=== PATIENT | male | born 2000 | race Hispanic/Latino ===

== ENCOUNTER 2024-07-10 11:32 | Inpatient (IN) | payer SELFPAY ==
[~2024-07-10] VITALS: Ht 180.3 cm; Wt 143.8 kg
[2024-07-10] VITALS (7 sets, daily range): BP systolic 181–192; BP diastolic 112–132; PULSE 98–107; RESP 20–24; TEMP 98.6–99.1; O2SAT 95–100
[2024-07-10 12:16] LABS: BASOPHILS # (AUTO) 0.1 (0.0-0.1); BASOPHILS % 0.6 % (0.0-1.0); EOSINOPHILS # (AUTO) 0.1 (0.0-0.4); EOSINOPHILS % 0.7 % (0.0-6.0); HEMATOCRIT 39.4 % (38.2-49.6); HEMOGLOBIN 12.9 g/dL (14.0-18.0); LYMPHOCYTES # (AUTO) 1.8 (1.0-3.2); MEAN CORPUSCULAR HEMOGLOBIN 28.9 pg (28-32); MEAN CORPUSCULAR HGB CONC 32.7 g/dL (31-35); MEAN CORPUSCULAR VOLUME 88.1 fL (81-99); MONOCYTES # (AUTO) 1.1 (0.2-0.8); MONOCYTES % 7.8 % (4.4-11.3); NEUTROPHILS # (AUTO) 10.6 (2.1-6.9); NEUTROPHILS % 77.5 % (38.7-80.0); PLATELET COUNT 269 x10e3/uL (140-360); RED BLOOD COUNT 4.47 x10e6/uL (4.3-5.7); RED CELL DISTRIBUTION WIDTH 13.9 % (11.7-14.4); WHITE BLOOD COUNT 13.65 x10e3/uL (4.8-10.8)
[2024-07-10 12:28] LABS: INR 1.02
[2024-07-10 12:31] LABS: INFLUENZAE A&B ANTIGEN (RAPID) NEGATIVE (NEGATIVE)
[2024-07-10 12:32] LABS: RESPIRATORY SYNC. VIRUS NEGATIVE (NEGATIVE)
[2024-07-10] MEDS: NITROGLYCERIN/D5W 200 MCG/ML 250 ML IV SCH (12:34)
[2024-07-10] MEDS: FUROSEMIDE INJ 10 MG/ML 4 ML VIAL IV ONE (12:34)
[2024-07-10 12:36] LABS: ALBUMIN 3.4 g/dL (3.5-5.0); ALBUMIN/GLOBULIN RATIO 0.9 (0.8-2.0); BILIRUBIN,TOTAL 0.7 mg/dL (0.2-1.2); CALCIUM 9.6 mg/dL (8.4-10.2); CREATININE, SERUM 2.06 mg/dL (0.72-1.25); MAGNESIUM 2.3 MG/DL (1.3-2.1); TOTAL PROTEIN 7.2 g/dL (6.5-8.1)
[2024-07-10] MEDS ORDERED: FUROSEMIDE INJ 10 MG/ML 4 ML VIAL ONE (12:36)
[2024-07-10] MEDS ORDERED: NITROGLYCERIN/D5W 200 MCG/ML 250 ML ONE (12:36)
[2024-07-10 12:43] LABS: TROPONIN I 0.219 ng/mL (0-0.300)
[2024-07-10] MEDS: LABETALOL HCL 5 MG/ML 20ML VIAL IV STA ×3 (13:03→19:26)
[2024-07-10] MEDS: LORAZEPAM INJ 2 MG/ML VIAL IV ONE (13:15)
[2024-07-10] MEDS ORDERED: ONDANSETRON HCL INJ 2MG/ML 2ML 2 MG/ML VIAL IV PRN (13:30)
[2024-07-10 14:40] LABS: CLARITY,URINE CLEAR (CLEAR); COLOR,URINE YELLOW (YELLOW); LEUKOCYTE ESTERASE ,URINE NEGATIVE (NEGATIVE); NITRITE,URINE NEGATIVE (NEGATIVE); PH,URINE 6.5 (5 - 7)
[2024-07-10 14:41] LABS: BILIRUBIN,URINE NEGATIVE (NEGATIVE); GLUCOSE, URINE NEGATIVE (NEGATIVE); KETONES,URINE NEGATIVE (NEGATIVE); PROTEIN,URINE DIPSTICK >=300 (NEGATIVE); URINE UROBILINOGEN 0.2 mg/dL (0.2 - 1)
[2024-07-10 14:44] LABS: AMPHETAMINES SCREEN,URINE NEGATIVE (NEGATIVE); BENZODIAZEPINES SCREEN,URINE NEGATIVE (NEGATIVE); CANNABINOIDS SCREEN,URINE NEGATIVE (NEGATIVE); COCAINE SCREEN,URINE NEGATIVE (NEGATIVE); METHADONE SCREEN, URINE NEGATIVE (NEGATIVE); OPIATES SCREEN,URINE NEGATIVE (NEGATIVE); PHENCYCLIDINE SCREEN,URINE NEGATIVE (NEGATIVE)
[2024-07-10 14:51] LABS: BACTERIA,URINE FEW /HPF; EPITHELIAL CELLS,URINE RARE /LPF; RBC,URINE 0-5 /HPF (0-5); WBC,URINE (MAN) 0-5 /HPF (0-5)
[2024-07-10] MEDS ORDERED: VASOTEC10 M1 PO (15:55)
[2024-07-10] MEDS: NIFEDIPINE CR 30 MG TAB PO ONE (16:18)
[2024-07-10] MEDS: CARVEDILOL 12.5 MG TAB PO SCH (16:18)
[2024-07-10] MEDS: ACETAMINOPHEN 325 MG TAB PO ONE (17:09)
[2024-07-10] MEDS: FUROSEMIDE INJ 10 MG/ML 2 ML VIAL IV ONE (17:11)
[2024-07-10] MEDS: POTASSIUM CHLORIDE 20MEQ/100ML 200 ML IV ONE (17:11)
[2024-07-10] MEDS ORDERED: SODIUM CHLORIDE 0.9% 250ML 250 ML ONE (18:36)
[2024-07-10 19:29] LABS: TROPONIN I 0.238 ng/mL (0-0.300)
[2024-07-10] MEDS: ZOLPIDEM TARTRATE 5 MG TAB PO PRN (22:49)
[2024-07-10] MEDS: LABETALOL HCL 5 MG/ML 20ML VIAL IV PRN (23:12)
[2024-07-11] VITALS (79 sets, daily range): BP systolic 109–186; BP diastolic 53–116; PULSE 84–123; RESP 14–39; TEMP 97.4–98.4; O2SAT 89–99
[2024-07-11] MEDS: ACETAMINOPHEN 325 MG TAB PO PRN (00:40)
[2024-07-11 01:25] LABS: TROPONIN I 0.187 ng/mL (0-0.300)
[2024-07-11 07:09] LABS: BASOPHILS # (AUTO) 0.1 (0.0-0.1); BASOPHILS % 0.5 % (0.0-1.0); EOSINOPHILS # (AUTO) 0.3 (0.0-0.4); EOSINOPHILS % 2.2 % (0.0-6.0); HEMATOCRIT 32.8 % (38.2-49.6); HEMOGLOBIN 10.7 g/dL (14.0-18.0); LYMPHOCYTES % 16.9 % (18.0-39.1); MEAN CORPUSCULAR HEMOGLOBIN 29.3 pg (28-32); MEAN CORPUSCULAR HGB CONC 32.6 g/dL (31-35); MEAN CORPUSCULAR VOLUME 89.9 fL (81-99); MONOCYTES # (AUTO) 1.2 (0.2-0.8); MONOCYTES % 10.2 % (4.4-11.3); NEUTROPHILS % 69.7 % (38.7-80.0); PLATELET COUNT 238 x10e3/uL (140-360); RED BLOOD COUNT 3.65 x10e6/uL (4.3-5.7); RED CELL DISTRIBUTION WIDTH 13.9 % (11.7-14.4); WHITE BLOOD COUNT 11.53 x10e3/uL (4.8-10.8)
[2024-07-11 07:42] LABS: ALBUMIN 2.9 g/dL (3.5-5.0); ALBUMIN/GLOBULIN RATIO 0.9 (0.8-2.0); ANION GAP 12.9 mmol/L (8-16); BILIRUBIN,TOTAL 0.6 mg/dL (0.2-1.2); CALCIUM 9.2 mg/dL (8.4-10.2); CHOL/HDL RATIO 4.8 (3.9-4.7); CREATININE, SERUM 2.42 mg/dL (0.72-1.25); TOTAL PROTEIN 6.2 g/dL (6.5-8.1)
[2024-07-11] MEDS: FUROSEMIDE INJ 10 MG/ML 2 ML VIAL IV SCH ×2 (07:43→18:18)
[2024-07-11] MEDS: CARVEDILOL 12.5 MG TAB PO SCH (07:44)
[2024-07-11] MEDS: NIFEDIPINE CR 30 MG TAB PO SCH ×2 (07:46→17:04)
[2024-07-11] MEDS: POTASSIUM CHLORIDE 20 MEQ TAB CR PO SCH (07:46)
[2024-07-11 07:54] LABS: POTASSIUM 2.9 mmol/L (3.5-5.1)
[2024-07-11 08:02] LABS: TROPONIN I 0.14 ng/mL (0-0.300)
[2024-07-11] MEDS: POTASSIUM CHLORIDE 20 MEQ TAB CR PO ONE ×2 (09:07→18:18)
[2024-07-11] MEDS: HYDRALAZINE HCL 100 MG TABLET PO SCH (12:12)
[2024-07-11] MEDS: NIFEDIPINE CR 30 MG TAB PO ONE (12:13)
[2024-07-11] MEDS: ONDANSETRON HCL INJ 2MG/ML 2ML 2 MG/ML VIAL IV PRN (13:50)
[2024-07-11] MEDS: ENOXAPARIN SOD INJ 40 MG/0.4 ML SYR SC SCH (17:03)
[2024-07-12] VITALS (30 sets, daily range): BP systolic 98–180; BP diastolic 54–106; PULSE 87–118; RESP 19–40; TEMP 97.7–98.7; O2SAT 88–100
[2024-07-12] MEDS: LABETALOL HCL 5 MG/ML 20ML VIAL IV ONE (06:55)
[2024-07-12 07:11] LABS: BASOPHILS # (AUTO) 0.1 (0.0-0.1); BASOPHILS % 0.7 % (0.0-1.0); EOSINOPHILS # (AUTO) 0.1 (0.0-0.4); EOSINOPHILS % 0.7 % (0.0-6.0); HEMATOCRIT 32.6 % (38.2-49.6); HEMOGLOBIN 10.9 g/dL (14.0-18.0); LYMPHOCYTES # (AUTO) 1.9 (1.0-3.2); LYMPHOCYTES % 16.9 % (18.0-39.1); MEAN CORPUSCULAR HEMOGLOBIN 29.5 pg (28-32); MEAN CORPUSCULAR HGB CONC 33.4 g/dL (31-35); MEAN CORPUSCULAR VOLUME 88.1 fL (81-99); MONOCYTES # (AUTO) 1.1 (0.2-0.8); MONOCYTES % 10.3 % (4.4-11.3); NEUTROPHILS # (AUTO) 7.8 (2.1-6.9); NEUTROPHILS % 70.8 % (38.7-80.0); PLATELET COUNT 319 x10e3/uL (140-360); RED CELL DISTRIBUTION WIDTH 14.6 % (11.7-14.4); WHITE BLOOD COUNT 11.05 x10e3/uL (4.8-10.8)
[2024-07-12 07:39] LABS: ALBUMIN 2.9 g/dL (3.5-5.0); ALBUMIN/GLOBULIN RATIO 0.9 (0.8-2.0); ANION GAP 15.4 mmol/L (8-16); BILIRUBIN,TOTAL 0.5 mg/dL (0.2-1.2); CALCIUM 9.2 mg/dL (8.4-10.2); CREATININE, SERUM 2.53 mg/dL (0.72-1.25); TOTAL PROTEIN 6.3 g/dL (6.5-8.1)
[2024-07-12 07:44] LABS: POTASSIUM 3.4 mmol/L (3.5-5.1)
[2024-07-12] MEDS: FUROSEMIDE INJ 10 MG/ML 4 ML VIAL IV SCH (09:03)
[2024-07-12] MEDS: POTASSIUM CHLORIDE 20 MEQ TAB CR PO ONE ×2 (09:04→16:05)
[2024-07-12] MEDS: HYDRALAZINE HCL 25 MG TAB PO SCH (15:42)
[2024-07-12] MEDS: FUROSEMIDE INJ 100 MG in SODIUM CHLORIDE 0.9% 90 ML IV SCH (17:44)
[2024-07-12] MEDS: SUCRALFATE 1 GM TAB PO ONE (23:55)
[2024-07-13] VITALS (27 sets, daily range): BP systolic 109–171; BP diastolic 61–99; PULSE 90–111; RESP 17–42; TEMP 97.8–99; O2SAT 89–99
[2024-07-13 05:45] LABS: ANION GAP 15.9 mmol/L (8-16); CALCIUM 9.1 mg/dL (8.4-10.2); CREATININE, SERUM 2.53 mg/dL (0.72-1.25)
[2024-07-13 05:54] LABS: POTASSIUM 2.9 mmol/L (3.5-5.1)
[2024-07-13 07:23] LABS: COMPLEMENT C3 184 mg/dL (82-167)
[2024-07-13 08:11] LABS: TOTAL PROTEIN, URINE 10.8 mg/dL (1-14)
[2024-07-13 08:16] LABS: TOTAL PROTEIN 24HR, URINE 529.2 mg/24hr (50-100)
[2024-07-13] MEDS: POTASSIUM CHLORIDE 20 MEQ TAB CR PO STA (08:49)
[2024-07-13] MEDS: NIFEDIPINE CR 30 MG TAB PO SCH (08:51)
[2024-07-13 09:46] LABS: COMPLEMENT C4 28 mg/dL (12-38)
[2024-07-13 15:08] LABS: ANTI DNA DS ANTIBODY <1 IU/mL (0-9)
[2024-07-13] MEDS: POTASSIUM CHLORIDE 20 MEQ TAB CR PO ONE (16:53)
[2024-07-14] VITALS (30 sets, daily range): BP systolic 120–165; BP diastolic 69–103; PULSE 85–112; RESP 16–37; TEMP 97.8–98.3; O2SAT 91–100
[2024-07-14 07:15] LABS: ANION GAP 15.8 mmol/L (8-16); CALCIUM 9.5 mg/dL (8.4-10.2); CREATININE, SERUM 2.46 mg/dL (0.72-1.25)
[2024-07-14] MEDS ORDERED: POLYETHYLENE GLYCOL 3350 17 GM PACK PO PRN (07:15)
[2024-07-14 07:53] LABS: POTASSIUM 2.8 mmol/L (3.5-5.1)
[2024-07-14] MEDS: NIFEDIPINE CR 30 MG TAB PO SCH (08:31)
[2024-07-14] MEDS: DOCUSATE SODIUM 100 MG CAP PO SCH (08:32)
[2024-07-14] MEDS: PANTOPRAZOLE SOD 40 MG TABEC PO SCH (08:32)
[2024-07-14] MEDS: POTASSIUM CHLORIDE 20 MEQ TAB CR PO SCH ×2 (08:32→14:00)
[2024-07-14] MEDS: POTASSIUM CHLORIDE 20 MEQ TAB CR PO STA (10:17)
[2024-07-14] MEDS ORDERED: POTASSIUM CHLORIDE 20 MEQ TAB CR PO ONE (18:00)
[2024-07-15] VITALS (28 sets, daily range): BP systolic 118–162; BP diastolic 73–117; PULSE 79–121; RESP 13–32; TEMP 97.7–98.3; O2SAT 84–100
[2024-07-15 06:04] LABS: CREATININE,URINE RANDOM 37.94 mg/dL (63-166); TOTAL PROTEIN, URINE 8.7 mg/dL (1-14)
[2024-07-15 07:15] LABS: ANION GAP 17.9 mmol/L (8-16); CALCIUM 9.2 mg/dL (8.4-10.2); CREATININE, SERUM 2.41 mg/dL (0.72-1.25)
[2024-07-15 07:29] LABS: POTASSIUM 2.9 mmol/L (3.5-5.1)
[2024-07-15] MEDS: POTASSIUM CHLORIDE 10MEQ EA PO ONE (08:41)
[2024-07-16] VITALS (24 sets, daily range): BP systolic 136–171; BP diastolic 83–124; PULSE 83–103; RESP 14–42; TEMP 98.1–98.4; O2SAT 91–100
[2024-07-16 06:55] LABS: BASOPHILS # (AUTO) 0.1 (0.0-0.1); BASOPHILS % 1.2 % (0.0-1.0); EOSINOPHILS # (AUTO) 0.2 (0.0-0.4); EOSINOPHILS % 2.5 % (0.0-6.0); HEMATOCRIT 35.4 % (38.2-49.6); HEMOGLOBIN 11.2 g/dL (14.0-18.0); LYMPHOCYTES # (AUTO) 1.4 (1.0-3.2); LYMPHOCYTES % 21.1 % (18.0-39.1); MEAN CORPUSCULAR HGB CONC 31.6 g/dL (31-35); MEAN CORPUSCULAR VOLUME 91.7 fL (81-99); MONOCYTES # (AUTO) 0.7 (0.2-0.8); MONOCYTES % 10.9 % (4.4-11.3); NEUTROPHILS # (AUTO) 4.3 (2.1-6.9); NEUTROPHILS % 63.9 % (38.7-80.0); PLATELET COUNT 402 x10e3/uL (140-360); RED BLOOD COUNT 3.86 x10e6/uL (4.3-5.7); RED CELL DISTRIBUTION WIDTH 13.6 % (11.7-14.4); WHITE BLOOD COUNT 6.79 x10e3/uL (4.8-10.8)
[2024-07-16 07:15] LABS: ALBUMIN 2.8 g/dL (3.5-5.0); ALBUMIN/GLOBULIN RATIO 0.8 (0.8-2.0); ANION GAP 14.1 mmol/L (8-16); BILIRUBIN,TOTAL 0.3 mg/dL (0.2-1.2); CALCIUM 9.2 mg/dL (8.4-10.2); CREATININE, SERUM 2.26 mg/dL (0.72-1.25); TOTAL PROTEIN 6.4 g/dL (6.5-8.1)
[2024-07-16 07:22] LABS: POTASSIUM 3.1 mmol/L (3.5-5.1)
[2024-07-16] MEDS: SODIUM CHLORIDE 0.9% 500ML 500 ML IV ONE (16:16)
[2024-07-16] MEDS ORDERED: IOPAMIDOL 370 MG/ML 100 ML INFUS..BTL INJ ONE (16:41)
[2024-07-16] MEDS ORDERED: SODIUM CHLORIDE 0.9% 100 ML ONE (16:42)
[2024-07-16] MEDS: SODIUM CHLORIDE 0.9% 1000ML 1,000 ML IV ONE (18:22)
[2024-07-16] MEDS: POTASSIUM CHLORIDE 20MEQ/100ML 100 ML IV SCH (18:22)
[2024-07-17] VITALS (23 sets, daily range): BP systolic 133–176; BP diastolic 82–129; PULSE 85–107; RESP 14–34; TEMP 97.9–98.6; O2SAT 88–100
[2024-07-17] MEDS: LABETALOL HCL 5 MG/ML 20ML VIAL IV PRN (06:33)
[2024-07-17 07:00] LABS: ANION GAP 12.6 mmol/L (8-16); CALCIUM 9.2 mg/dL (8.4-10.2); CREATININE, SERUM 2.19 mg/dL (0.72-1.25); POTASSIUM 3.6 mmol/L (3.5-5.1)
[2024-07-17 08:44] LABS: TOTAL PROTEIN, URINE 19.3 mg/dL (1-14)
[2024-07-17] MEDS ORDERED: FUROSEMIDE INJ 10 MG/ML 4 ML VIAL IV SCH (09:00)
[2024-07-17 09:13] LABS: TOTAL PROTEIN 24HR, URINE 540.4 mg/24hr (50-100)
[2024-07-17 09:22] LABS: CREATININE,URINE RANDOM 154.1 mg/dL (63-166); TOTAL PROTEIN, URINE 40.3 mg/dL (1-14)
[2024-07-17] MEDS: LISINOPRIL 10 MG TAB PO ONE (17:15)
[2024-07-18] VITALS (9 sets, daily range): BP systolic 118–133; BP diastolic 68–98; PULSE 79–108; RESP 18–20; TEMP 97–99; O2SAT 98–100
[2024-07-18 05:05] LABS: BASOPHILS # (AUTO) 0.1 (0.0-0.1); BASOPHILS % 1.1 % (0.0-1.0); EOSINOPHILS # (AUTO) 0.3 (0.0-0.4); EOSINOPHILS % 4.2 % (0.0-6.0); HEMATOCRIT 35.6 % (38.2-49.6); HEMOGLOBIN 10.9 g/dL (14.0-18.0); LYMPHOCYTES # (AUTO) 1.4 (1.0-3.2); MEAN CORPUSCULAR HEMOGLOBIN 28.8 pg (28-32); MEAN CORPUSCULAR HGB CONC 30.6 g/dL (31-35); MEAN CORPUSCULAR VOLUME 93.9 fL (81-99); MONOCYTES # (AUTO) 0.7 (0.2-0.8); MONOCYTES % 11.2 % (4.4-11.3); NEUTROPHILS # (AUTO) 3.8 (2.1-6.9); NEUTROPHILS % 61.2 % (38.7-80.0); PLATELET COUNT 392 x10e3/uL (140-360); RED BLOOD COUNT 3.79 x10e6/uL (4.3-5.7); RED CELL DISTRIBUTION WIDTH 13.7 % (11.7-14.4); WHITE BLOOD COUNT 6.14 x10e3/uL (4.8-10.8)
[2024-07-18 05:25] LABS: ANION GAP 12.5 mmol/L (8-16); CREATININE, SERUM 1.92 mg/dL (0.72-1.25); POTASSIUM 3.5 mmol/L (3.5-5.1)
[2024-07-18 09:12] LABS: PROTHROMBIN TIME 13.8 seconds (11.9-14.5)
[2024-07-18] MEDS: NIFEDIPINE CR 30 MG TAB PO SCH (09:58)
[2024-07-18] MEDS: LISINOPRIL 10 MG TAB PO SCH (09:58)
[2024-07-18] MEDS: SODIUM CHLORIDE 0.9% 250ML 250 ML ONE (11:02)
[2024-07-18 15:15] LABS: cANCA TITER <1:20 titer (Neg:<1:20)
[2024-07-18 15:57] LABS: ATYPICAL pANCA TITER <1:20 titer (Neg:<1:20); pANCA TITER <1:20 titer (Neg:<1:20)
[2024-07-19] VITALS (8 sets, daily range): BP systolic 97–146; BP diastolic 56–88; PULSE 88–113; RESP 16–22; TEMP 97.5–98.9; O2SAT 96–98
[2024-07-19 04:59] LABS: BASOPHILS # (AUTO) 0.1 (0.0-0.1); EOSINOPHILS # (AUTO) 0.3 (0.0-0.4); EOSINOPHILS % 5.1 % (0.0-6.0); HEMATOCRIT 36.3 % (38.2-49.6); HEMOGLOBIN 11.1 g/dL (14.0-18.0); LYMPHOCYTES # (AUTO) 1.4 (1.0-3.2); LYMPHOCYTES % 23.2 % (18.0-39.1); MEAN CORPUSCULAR HEMOGLOBIN 28.8 pg (28-32); MEAN CORPUSCULAR HGB CONC 30.6 g/dL (31-35); MONOCYTES # (AUTO) 0.7 (0.2-0.8); MONOCYTES % 12.1 % (4.4-11.3); NEUTROPHILS # (AUTO) 3.5 (2.1-6.9); NEUTROPHILS % 58.1 % (38.7-80.0); PLATELET COUNT 424 x10e3/uL (140-360); RED BLOOD COUNT 3.86 x10e6/uL (4.3-5.7); RED CELL DISTRIBUTION WIDTH 13.8 % (11.7-14.4); WHITE BLOOD COUNT 5.94 x10e3/uL (4.8-10.8)
[2024-07-19 05:34] LABS: ANION GAP 10.6 mmol/L (8-16); CALCIUM 8.8 mg/dL (8.4-10.2); CREATININE, SERUM 2.06 mg/dL (0.72-1.25); POTASSIUM 4.6 mmol/L (3.5-5.1)
[2024-07-19] MEDS ORDERED: LIDOCAINE HCL 1% LOCAL INJ 20 ML VIAL ONE (08:10)
[2024-07-19] MEDS ORDERED: SODIUM CHLORIDE 0.9% 500ML 500 ML ONE (08:10)
[2024-07-19] MEDS ORDERED: SODIUM CHLORIDE 0.9% 250ML 250 ML ONE (08:29)
[2024-07-19] MEDS ORDERED: MIDAZOLAM HCL 2 MG/2 ML VIAL ONE (08:29)
[2024-07-19] MEDS ORDERED: FENTANYL CITRATE/PF 100MCG/2 ML INJ ONE (08:29)
[2024-07-19 16:07] LABS: ALDOSTERONE 37.9; RENIN, ACTIVITY PLASMA 36.102
[2024-07-20 00:05] VITALS: BP 97/57; PULSE 93; RESP 18; TEMP 97.5; O2SAT 98
[2024-07-20 00:49] VITALS: BP 126/82; PULSE 99; RESP 17; TEMP 98; O2SAT 97
[2024-07-20 04:00] VITALS: BP 134/80; PULSE 89; RESP 18; TEMP 97.7; O2SAT 94
[2024-07-20 05:30] LABS: BASOPHILS # (AUTO) 0.1 (0.0-0.1); BASOPHILS % 1.1 % (0.0-1.0); EOSINOPHILS # (AUTO) 0.3 (0.0-0.4); EOSINOPHILS % 4.2 % (0.0-6.0); HEMATOCRIT 37.4 % (38.2-49.6); HEMOGLOBIN 11.4 g/dL (14.0-18.0); LYMPHOCYTES # (AUTO) 1.6 (1.0-3.2); LYMPHOCYTES % 20.2 % (18.0-39.1); MEAN CORPUSCULAR HEMOGLOBIN 29.2 pg (28-32); MEAN CORPUSCULAR HGB CONC 30.5 g/dL (31-35); MEAN CORPUSCULAR VOLUME 95.7 fL (81-99); MONOCYTES # (AUTO) 0.8 (0.2-0.8); MONOCYTES % 10.6 % (4.4-11.3); NEUTROPHILS % 63.5 % (38.7-80.0); PLATELET COUNT 406 x10e3/uL (140-360); RED BLOOD COUNT 3.91 x10e6/uL (4.3-5.7); RED CELL DISTRIBUTION WIDTH 13.7 % (11.7-14.4); WHITE BLOOD COUNT 7.91 x10e3/uL (4.8-10.8)
[2024-07-20 06:09] LABS: ANION GAP 13.4 mmol/L (8-16); CALCIUM 9.1 mg/dL (8.4-10.2); CREATININE, SERUM 1.84 mg/dL (0.72-1.25); POTASSIUM 4.4 mmol/L (3.5-5.1)
[2024-07-20 07:53] VITALS: PULSE 88; RESP 20; O2SAT 97
[2024-07-20 08:15] VITALS: BP 134/80; PULSE 88; RESP 20; TEMP 97.7; O2SAT 97
[2024-07-20 10:08] VITALS: BP 148/90; PULSE 105; RESP 18; TEMP 98.3; O2SAT 97
[2024-07-20] MEDS ORDERED: HYDRALAZINE HCL25 MG PO (10:52)
[2024-07-20] MEDS ORDERED: PROTONIX20 MG PO (10:52)
[2024-07-20] MEDS ORDERED: LISINOPRIL10 MG PO (10:52)
[2024-07-20] MEDS ORDERED: COREG12.5 MG PO (10:52)
[2024-07-20] MEDS ORDERED: NIFEDIPINE ER30 M1 PO (10:52)
[2024-07-20 17:36] LABS: SPE ALPHA 1 GLOBULIN 0.3; SPE ALPHA 2 GLOBULIN 1.1
[2024-07-20 17:37] LABS: SPE GAMMA GLOBULIN 0.7; SPE TOTAL PROTEIN 5.8
[2024-07-20 17:38] LABS: A/G RATIO 0.9; GLOBULIN TOTAL 3.1; KAPPA LIGHT CHAINS 47.8; KAPPA/LAMBDA RATIO 1.45
== END 2024-07-20 11:50 | disposition home or self-care (01) | DRG 871 ==
LOC: ER 11:49 → ERHOLD 13:32 → ICU 22:26 → MED/SURG 07-17 17:38
PROVIDERS: ADMIT Internal Medicine; ATTEND Internal Medicine
PROC: 3E0333Z Introduction of Anti-inflammatory into Peripheral Vein, Percutaneous Approach (ICD-10-PCS; 2024-07-11)
PROC: 0TB13ZX Excision of Left Kidney, Percutaneous Approach, Diagnostic (ICD-10-PCS; principal; 2024-07-19)
DX: A41.9 Sepsis, unspecified organism (principal); I13.0 Hypertensive heart and chronic kidney disease with heart failure and stage 1 through stage 4 chronic kidney disease, or unspecified chronic kidney disease; I50.33 Acute on chronic diastolic (congestive) heart failure; J18.9 Pneumonia, unspecified organism; M62.82 Rhabdomyolysis; I16.1 Hypertensive emergency; N17.9 Acute kidney failure, unspecified; Z68.42 Body mass index [BMI] 45.0-49.9, adult; E66.01 Morbid (severe) obesity due to excess calories; E88.09 Other disorders of plasma-protein metabolism, not elsewhere classified; Z11.52 Encounter for screening for COVID-19; N18.31 Chronic kidney disease, stage 3a; R35.0 Frequency of micturition; R35.1 Nocturia; E87.6 Hypokalemia; I1A.0 Resistant hypertension; R06.02 Shortness of breath; Z82.49 Family history of ischemic heart disease and other diseases of the circulatory system
CPT/HCPCS: 36415; 50200; 71045; 74175; 74470; 76770; 76942; 80048; 80053; 80061; 80307; 81001; 81015; 81050; 82088; 82550; 82570; 82948; 83605; 83735; 83880; 84100; 84132; 84156; 84165; 84244; 84484; 85025; 85379; 85610; 85730; 86021; 86039; 86160; 86225; 87040; 87086; 87400; 87420; 93005; 93306; 93976; 94799; 99152; 99153; 99252; 99284; J0696; J1650; J1940; J2003; J2060; J2250; J2405; J2470; J3480; J7030; J7040; J7050; Q9967; U0002